=== PATIENT | male | born 2000 | race American Indian/Alaskan Native ===

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

== ENCOUNTER 2021-03-13 01:49 | Emergency (ER) | payer OTHER ==
[~2021-03-13] VITALS: Ht 185.4 cm; Wt 70.8 kg
[2021-03-13] MEDS ORDERED: HYDROCODON-ACE1 EA10 PO (03:17)
[2021-03-13] MEDS ORDERED: CRUTCH1 EACH MISC (03:19)
== END 2021-03-13 03:32 | disposition home or self-care (01) ==
LOC: ED 01:49
DX: S83.92XA Sprain of unspecified site of left knee, initial encounter (principal); W17.89XA Other fall from one level to another, initial encounter; F17.200 Nicotine dependence, unspecified, uncomplicated
CPT/HCPCS: 73560; 99283-25

== ENCOUNTER 2021-08-02 17:12 | Emergency (ER) | payer OTHER ==
[~2021-08-02] VITALS: Ht 185.4 cm; Wt 70.8 kg
[~2021-08-02 17:12] MED LIST changes: +CRUTCH1 EACH MISC; +HYDROCODON-ACE1 EA10 PO
[2021-08-02] MEDS ORDERED: CEPHALEXIN500 M1 PO (17:57)
[2021-08-02] MEDS ORDERED: CENTANY30 GM TOP (17:57)
== END 2021-08-02 18:08 | disposition home or self-care (01) ==
LOC: ED 17:12
DX: L01.00 Impetigo, unspecified (principal); F17.200 Nicotine dependence, unspecified, uncomplicated
CPT/HCPCS: 99282; A9270

== ENCOUNTER 2022-01-18 21:21 | Emergency (ER) | payer OTHER ==
[~2022-01-18] VITALS: Ht 185.4 cm; Wt 65.6 kg
[~2022-01-18 21:21] MED LIST changes: +CENTANY30 GM TOP; +CEPHALEXIN500 M1 PO
== END 2022-01-18 22:08 | disposition home or self-care (01) ==
LOC: ED 21:21
DX: B34.9 Viral infection, unspecified (principal)
CPT/HCPCS: 87502; 99283; U0003

== ENCOUNTER 2022-02-27 23:47 | Emergency (ER) | payer OTHER ==
[~2022-02-27] VITALS: Ht 185.4 cm; Wt 64.1 kg
== END 2022-02-28 00:23 | disposition home or self-care (01) ==
LOC: ED 23:47
DX: S60.221A Contusion of right hand, initial encounter (principal); F17.200 Nicotine dependence, unspecified, uncomplicated; X58.XXXA Exposure to other specified factors, initial encounter
CPT/HCPCS: 73130; 99283-25

== ENCOUNTER 2022-09-30 17:50 | Emergency (ER) | payer OTHER ==
[~2022-09-30] VITALS: Ht 185.4 cm; Wt 67.7 kg
[2022-09-30 19:27] VITALS: BP 130/78
== END 2022-09-30 19:27 | disposition home or self-care (01) ==
LOC: ED 17:50
DX: S60.221A Contusion of right hand, initial encounter (principal); W22.8XXA Striking against or struck by other objects, initial encounter; F17.200 Nicotine dependence, unspecified, uncomplicated
CPT/HCPCS: 73130; 99283-25

== ENCOUNTER 2024-04-24 17:36 | Emergency (ER) | payer OTHER ==
[~2024-04-24] VITALS: Ht 188 cm; Wt 68.1 kg
[~2024-04-24 17:36] MED LIST changes: +BACLOFEN5 MG PO; +ELIMITE60 GM TOP; +LIDODERM1 EACH TOP
[2024-04-24] MEDS ORDERED: MELOXICAM15 MG PO (19:20)
[2024-04-24] MEDS ORDERED: TRAMADOL HCL 50 MG HOME.PACK PO ONE (19:30)
[2024-04-24 19:45] VITALS: BP 114/70
== END 2024-04-24 19:50 | disposition home or self-care (01) ==
LOC: ED 17:36
DX: S60.221A Contusion of right hand, initial encounter (principal); W23.0XXA Caught, crushed, jammed, or pinched between moving objects, initial encounter; F17.200 Nicotine dependence, unspecified, uncomplicated
CPT/HCPCS: 73110; 73130; 99283; A9270

== ENCOUNTER 2024-05-28 20:05 | Emergency (ER) | payer OTHER ==
[~2024-05-28] VITALS: Ht 185.4 cm; Wt 67.6 kg
[~2024-05-28 20:05] MED LIST changes: +MELOXICAM15 MG PO
[2024-05-28] MEDS ORDERED: SODIUM CHLORIDE 0.9% 1,000 ML IV ONE (21:00)
[2024-05-28 21:03] LABS: BASOPHILS 0.4 % (0-2); EOSINOPHILS 0.4 % (0-6); HEMATOCRIT 44.8 % (35.0-50.0); HEMOGLOBIN 15.3 g/dL (12.0-18.0); LYMPHOCYTES 19.8 % (24-44); MCH 29.2 (27-36); MCHC 34.2 g/dl (30-36); MCV 85.5 fl (81-99); MONOCYTES 4.9 % (0-12); NEUTROPHILS 74.5 % (39-80); PLATELET COUNT 235 K/uL (140-440); RBC 5.25 M/ul (4.3-5.7); RDW 13.4 (10.5-15.0)
[2024-05-28 21:18] LABS: ALBUMIN 4.4 g/dL (3.4-5.0); ALBUMIN/GLOBULIN RATIO 1.22 (1.1-2.4); ANION GAP 12.5 (7-21); BILIRUBIN, TOTAL 0.6 ng/dL (0.2-1.0); BUN/CREATININE RATIO 9.33 (6.0-28.6); CALCIUM 9.2 mg/dL (8.5-10.1); CREATININE, SERUM 0.75 mg/dL (0.70-1.30); MAGNESIUM 2.2 mg/dL (1.8-2.4); POTASSIUM 3.5 mmol/L (3.5-5.1)
[2024-05-28] MEDS ORDERED: MECLIZINE HCL25 MG PO (21:39)
[2024-05-28] MEDS ORDERED: MECLIZINE HCL 25 MG TAB PO ONE (21:45)
[2024-05-28 21:48] VITALS: BP 113/70
--- NOTE | 2024-05-29 16:41 | EKG ---
[facility] [address] [address] [place], [place] [address] Signed Normal sinus rhythm Normal ECG No previous ECGs available Confirmed by La Maldonado MD ([id number]) on 05/29/2024 4:41:16 PM Electronically Signed By: LA MALDONADO MD 05/29/24 1641 PATIENT NAME: TOSHIA BROWN Electrocardiogram DATE OF : [birth year] PHYSICIAN: LA MALDONADO MD REPORT #: [id number] REPORT IS CONFIDENTIAL AND NOT TO BE RELEASED WITHOUT AUTHORIZATION
== END 2024-05-28 21:48 | disposition home or self-care (01) ==
LOC: ED 20:05
PROVIDERS: Family Medicine
DX: H81.10 Benign paroxysmal vertigo, unspecified ear (principal); F17.200 Nicotine dependence, unspecified, uncomplicated
CPT/HCPCS: 36415; 80053; 83735; 85025; 93005; 93010; 99284; A9270

== ENCOUNTER 2025-02-08 14:09 | Emergency (ER) | payer OTHER ==
[~2025-02-08] VITALS: Ht 185.4 cm; Wt 66.5 kg
[~2025-02-08 14:09] MED LIST changes: +MECLIZINE HCL25 MG PO
--- OUTSIDE RECORDS SUMMARY | 2025-02-08 14:15 | XMS ---
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 King VISIT COUNT (12 MO.) Bernadine Rodriguez TOTAL 5 NOTE: Visits indicate total known visits. ED/UCC VISIT TRACKING (12 MO.) 02/08/2025 14:09 [facility] [place] TYPE: Emergency COMPLAINT: - EAR PAIN 01/08/2025 19:53 [facility] [place] TYPE: Emergency COMPLAINT: - GROIN SWELLING,DIFFICULTY URINATING 01/03/2025 18:33 [facility] [place] TYPE: Emergency COMPLAINT: - GROIN PROBLEM DIAGNOSES: - Left lower quadrant pain - Nicotine dependence, unspecified, uncomplicated - Other symptoms and signs concerning food and fluid intake - Unilateral inguinal hernia, without obstruction or gangrene, not specified as recurrent 05/28/2024 20:05 [facility] [place] TYPE: Emergency COMPLAINT: - DIZZIENESS DIAGNOSES: - Benign paroxysmal vertigo, unspecified ear - Dizziness and giddiness - Nicotine dependence, unspecified, uncomplicated 04/24/2024 17:37 [facility] [place] TYPE: Emergency COMPLAINT: - HAND INJURY DIAGNOSES: - Caught, crushed, jammed, or pinched between moving objects, initial encounter - Contusion of right hand, initial encounter - Nicotine dependence, unspecified, uncomplicated - Pain in right hand INPATIENT VISIT TRACKING (12 MO.) No inpatient visits to display in this time frame [id number]
[2025-02-08] MEDS ORDERED: MECLIZINE HCL25 MG PO (14:59)
[2025-02-08] MEDS ORDERED: AMOX TR-K CLV1 EAC1 PO (14:59)
[2025-02-08] MEDS ORDERED: MECLIZINE HCL 25 MG TAB PO ONE (15:00)
[2025-02-08] MEDS ORDERED: AMOXICILLIN/CLAVULANATE K 875 MG TAB PO ONE (15:00)
[2025-02-08 15:10] VITALS: BP 117/74
== END 2025-02-08 15:10 | disposition home or self-care (01) ==
LOC: ED 14:09
DX: H66.92 Otitis media, unspecified, left ear (principal); F17.200 Nicotine dependence, unspecified, uncomplicated
CPT/HCPCS: 99282; A9270

== ENCOUNTER 2025-04-12 20:43 | Emergency (ER) | payer OTHER ==
[~2025-04-12] VITALS: Ht 185.4 cm; Wt 65.9 kg
--- OUTSIDE RECORDS SUMMARY | ~2025-04-12 | XMS | Continuity of Care Document ---
Demographics + + + | Address | [address] | | | [place] [address] | + + + | Preferred Language | Unknown | + + + | Marital Status | Never | + + + | Taoist Affiliation | Unknown | + + + | Race | or | + + + | Ethnic Group | Not or | + + + Author + + + | Author | [facility] | + + + | Organization | [facility] | + + + | Address | [address] | | | [place] [address] | + + + | Phone | | + + + Care Team Providers + + + + | Care Carpenters Helper Name | Role | Phone | + + + + Unavailable | Unavailable | + + + + Unavailable | Unavailable | + + + + Allergies No information. Encounters No information. Functional Status No information. Immunizations No information. Medications + + + + | date | description | facility | + + + + | (no date) | METHYLPHENIDATE HCL | [facility] | | | | [facility] | + + + + | (no date) | RISPERIDONE | [facility] | | | | [facility] | + + + + | (no date) | RISPERIDONE | [facility] | | | | [facility] | + + + + | (no date) | ARIPIPRAZOLE | [facility] | | | | [facility] | + + + + | (no date) | AMPHET ASP/AMPHET/D-AMPHET | [facility] | | | | [facility] | + + + + | 2025-02-08 00:00 | AMOXICILLIN/POTASSIUM CLAV | [facility] | | | | [facility] | + + + + | (no date) | IBUPROFEN | [facility] | | | | [facility] | + + + + | (no date) | GUANFACINE HCL | [facility] | | | | [facility] | + + + + | 2025-02-08 00:00 | MECLIZINE HCL | [facility] | | | | [facility] | + + + + Problems + + + + | date | description | facility | + + + + | 2025-02-08 00:00 | Otitis media | [facility] | | | | [facility] | + + + + Procedures No information. Results/Labs No information. Social History +--------+ + + | date | description | facility | +--------+ + + Vital Signs + + + +---------+ | date | measurement | value | units | + + + +---------+ | 2025-02-08 00:00 | BMI | 19.3 | kg/m2 | + + + +---------+ | 2025-02-08 00:00 | BP_diastolic | 74 | mmHg | + + + +---------+ | 2025-02-08 00:00 | BP_systolic | 117 | mmHg | + + + +---------+ | 2025-02-08 00:00 | heart_rate | 89 | /min | + + + +---------+ | 2025-02-08 00:00 | height_metric | 185.42 | cm | + + + +---------+ | 2025-02-08 00:00 | height_standard | 73 | in | + + + +---------+ | 2025-02-08 00:00 | o2_saturation | 99 | % | + + + +---------+ | 2025-02-08 00:00 | respiration_rate | 17 | /min | + + + +---------+ | 2025-02-08 00:00 | | 97.8 | F | | | temperature_standar | | | | | d | | | + + + +---------+ | 2025-02-08 00:00 | weight_metric | 66.499 | kg | + + + +---------+ | 2025-02-08 00:00 | weight_standard | 146.606 | lb | + + + +---------+"
[~2025-04-12 20:43] MED LIST changes: +AMOX TR-K CLV1 EAC1 PO
--- OUTSIDE RECORDS SUMMARY | 2025-04-12 20:50 | XMS ---
PreManage Notification: TOSHIA BROWN Security Health Safety And Environment Manager Events No recent Security Events currently on file CRITERIA MET - Group Notification CARE PROVIDERS -, [facility] Dentist: Waiter/Waitress Head Current [place] PHONE: [phone] CAROL ANN ERVIN Physician Assistant Marii Phipps PHONE: Unknown Kimo has no Care Guidelines for this patient. EJames VISIT COUNT (12 MO.) Juarez Rodriguez TOTAL 6 NOTE: Visits indicate total known visits. ED/UCC VISIT TRACKING (12 MO.) 04/12/2025 20:44 [facility] [place] TYPE: Emergency COMPLAINT: - THROAT PAIN 02/08/2025 14:09 [facility] [place] TYPE: Emergency COMPLAINT: - EAR PAIN DIAGNOSES: - Nicotine dependence, unspecified, uncomplicated - Otalgia, left ear - Otitis media, unspecified, left ear 01/08/2025 19:53 [facility] [place] TYPE: Emergency COMPLAINT: - GROIN SWELLING,DIFFICULTY URINATING 01/03/2025 18:33 [facility] TYPE: Emergency COMPLAINT: - GROIN PROBLEM DIAGNOSES: - Left lower quadrant pain - Nicotine dependence, unspecified, uncomplicated - Other symptoms and signs concerning food and fluid intake - Unilateral inguinal hernia, without obstruction or gangrene, not specified as recurrent 05/28/2024 20:05 [facility] [place] TYPE: Emergency COMPLAINT: - DIZZIENESS DIAGNOSES: - Benign paroxysmal vertigo, unspecified ear - Dizziness and giddiness - Nicotine dependence, unspecified, uncomplicated 04/24/2024 17:37 [facility] [place] TYPE: Emergency COMPLAINT: - HAND INJURY DIAGNOSES: - Caught, crushed, jammed, or pinched between moving objects, initial encounter - Contusion of right hand, initial encounter - Nicotine dependence, unspecified, uncomplicated - Pain in right hand INPATIENT VISIT TRACKING (12 MO.) No inpatient visits to display in this time frame [id number]
[2025-04-12] MEDS ORDERED: MECLIZINE HCL25 M1 PO (21:41)
[2025-04-12] MEDS ORDERED: MECLIZINE HCL 25 MG TAB PO ONE (22:15)
[2025-04-12] MEDS ORDERED: AMOXICILLIN500 MG PO (22:15)
[2025-04-12] MEDS ORDERED: AMOXICILLIN 500 MG CAP PO ONE (22:15)
[2025-04-12 22:28] VITALS: BP 106/68
== END 2025-04-12 22:30 | disposition home or self-care (01) ==
LOC: ED 20:43
DX: J02.0 Streptococcal pharyngitis (principal); H81.10 Benign paroxysmal vertigo, unspecified ear; F17.200 Nicotine dependence, unspecified, uncomplicated; Z79.899 Other long term (current) drug therapy
CPT/HCPCS: 87651; 99283; A9270

== ENCOUNTER 2025-05-03 23:18 | Emergency (ER) | payer OTHER ==
[~2025-05-03] VITALS: Ht 185.4 cm; Wt 65.9 kg
[~2025-05-03 23:18] MED LIST changes: +AMOXICILLIN500 MG PO; +MECLIZINE HCL25 M1 PO
--- OUTSIDE RECORDS SUMMARY | 2025-05-03 23:24 | XMS ---
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 EJames VISIT COUNT (12 MO.) 6 [facility] TOTAL 6 NOTE: Visits indicate total known visits. ED/UCC VISIT TRACKING (12 MO.) 05/03/2025 23:18 [facility] [place] TYPE: Emergency COMPLAINT: - STREP THROAT 04/12/2025 20:44 [facility] [place] TYPE: Emergency COMPLAINT: - THROAT PAIN DIAGNOSES: - Acute pharyngitis, unspecified - Benign paroxysmal vertigo, unspecified ear - Nicotine dependence, unspecified, uncomplicated - Other termite treater (current) drug therapy - Streptococcal pharyngitis 02/08/2025 14:09 [facility] [place] TYPE: Emergency COMPLAINT: - EAR PAIN DIAGNOSES: - Nicotine dependence, unspecified, uncomplicated - Otalgia, left ear - Otitis media, unspecified, left ear 01/08/2025 19:53 [facility] [place] TYPE: Emergency COMPLAINT: - GROIN SWELLING,DIFFICULTY URINATING 01/03/2025 18:33 [facility] [place] TYPE: Emergency COMPLAINT: - GROIN PROBLEM DIAGNOSES: - Left lower quadrant pain - Nicotine dependence, unspecified, uncomplicated - Other symptoms and signs concerning food and fluid intake - Unilateral inguinal hernia, without obstruction or gangrene, not specified as recurrent 05/28/2024 20:05 [facility] [place] TYPE: Emergency COMPLAINT: - DIZZIENESS DIAGNOSES: - Benign paroxysmal vertigo, unspecified ear - Dizziness and giddiness - Nicotine dependence, unspecified, uncomplicated INPATIENT VISIT TRACKING (12 MO.) No inpatient visits to display in this time frame [id number]
[2025-05-04 00:02] LABS: CORONAVIRUS COVID-19 AG NEGATIVE (NEGATIVE)
[2025-05-04 00:26] VITALS: BP 139/90
[2025-05-04] MEDS ORDERED: CYCLOBENZAPRINE10 MG PO (20:38)
== END 2025-05-04 00:26 | disposition home or self-care (01) ==
LOC: ED 23:18
PROVIDERS: Family Medicine
DX: J02.9 Acute pharyngitis, unspecified (principal); F43.10 Post-traumatic stress disorder, unspecified; F17.200 Nicotine dependence, unspecified, uncomplicated; Z79.899 Other long term (current) drug therapy
CPT/HCPCS: 36415; 87651; 99283

== ENCOUNTER 2025-05-04 19:41 | Emergency (ER) | payer OTHER ==
[~2025-05-04] VITALS: Ht 185.4 cm; Wt 65.9 kg
--- NOTE | ~2025-05-04 | EKG ---
[facility] [address] [facility] [place], [place] [address] Draft EK completed, results pending confirmation PATIENT NAME: KEVINTOSHIA GUILLEN Electrocardiogram DATE OF : [birth year] PHYSICIAN: PRELIMINARY REPORT #: [id number] REPORT IS CONFIDENTIAL AND NOT TO BE RELEASED WITHOUT AUTHORIZATION
--- OUTSIDE RECORDS SUMMARY | ~2025-05-04 | XMS | Continuity of Care Document ---
Demographics + + + | Address | [address] | | | [place] [address] | + + + | Preferred Language | Unknown | + + + | Marital Status | Domestic partner | + + + | Uatsdin Affiliation | Unknown | + + + | Race | or | + + + | Ethnic Group | Not or | + + + Author + + + | Author | [facility] | + + + | Organization | [facility] | + + + | Address | [address] | | | [place] [address] | + + + | Phone | | + + + Care Team Providers + + + + | Care Line Maintenance Technician Name | Role | Phone | + + + + Unavailable | Unavailable | + + + + Unavailable | Unavailable | + + + + Allergies No information. Encounters No information. Functional Status No information. Immunizations No information. Medications + + + + | date | description | facility | + + + + | (no date) | METHYLPHENIDATE HCL | [facility] | | | | [facility] | + + + + | 2025-04-12 00:00 | AMOXICILLIN | [facility] | | | | [facility] | + + + + | (no date) | RISPERIDONE | [facility] | | | | [facility] | + + + + | (no date) | RISPERIDONE | [facility] | | | | [facility] | + + + + | (no date) | ARIPIPRAZOLE | [facility] | | | | [facility] | + + + + | (no date) | AMPHET ASP/AMPHET/D-AMPHET | [facility] | | | | [facility] | + + + + | 2025-02-08 00:00 | AMOXICILLIN/POTASSIUM CLAV | [facility] | | | | [facility] | + + + + | (no date) | IBUPROFEN | [facility] | | | | [facility] | + + + + | (no date) | GUANFACINE HCL | [facility] | | | | [facility] | + + + + | 2025-04-12 00:00 | MECLIZINE HCL | [facility] | | | | [facility] | + + + + | 2025-02-08 00:00 | MECLIZINE HCL | [facility] | | | | [facility] | + + + + Problems + + + + | date | description | facility | + + + + | 2025-02-08 00:00 | Otitis media | [facility] | | | | [facility] | + + + + | 2025-04-12 00:00 | Pharyngitis due to | [facility] | | | Streptococcus species | [facility] | + + + + | 2025-04-12 00:00 | Pharyngitis | [facility] | | | | [facility] | + + + + Procedures No [...] 146.606 | lb | + + + +---------+ | 2025-04-12 00:00 | BMI | 19.2 | kg/m2 | + + + +---------+ | 2025-04-12 00:00 | BP_diastolic | 68 | mmHg | + + + +---------+ | 2025-04-12 00:00 | BP_systolic | 106 | mmHg | + + + +---------+ | 2025-04-12 00:00 | heart_rate | 84 | /min | + + + +---------+ | 2025-04-12 00:00 | height_metric | 185.42 | cm | + + + +---------+ | 2025-04-12 00:00 | height_standard | 73 | in | + + + +---------+ | 2025-04-12 00:00 | o2_saturation | 100 | % | + + + +---------+ | 2025-04-12 00:00 | respiration_rate | 14 | /min | + + + +---------+ | 2025-04-12 00:00 | | 98.2 | F | | | temperature_standar | | | | | d | | | + + + +---------+ | 2025-04-12 00:00 | weight_metric | 65.901 | kg | + + + +---------+ | 2025-04-12 00:00 | weight_standard | 145.287 | lb | + + + +---------+"
--- OUTSIDE RECORDS SUMMARY | 2025-05-04 19:43 | XMS ---
PreManage Notification: TOSHIA BROWN Security Outside Sales Executive Events No recent Security Events currently on file CRITERIA MET - 6 ED Visits in 6 Months - Group Notification - [facility] - 2 Visits in 30 Days CARE PROVIDERS -, [facility]+ Dentist: Systems Analyst Marii Sae[place] PHONE: [phone] CAROL ANN ERVIN Physician Assistant Marii Phipps PHONE: Unknown Kimo has no Care Guidelines for this patient. E.Jonatan VISIT COUNT (12 MO.) [address] [place] [address] TOTAL 7 NOTE: Visits indicate total known visits. ED/UCC VISIT TRACKING (12 MO.) 05/04/2025 19:42 [facility] [place] TYPE: Emergency COMPLAINT: - CHEST PAIN 05/03/2025 23:18 [facility] [place] TYPE: Emergency COMPLAINT: - STREP THROAT 04/12/2025 20:44 [facility] [place] TYPE: Emergency COMPLAINT: - THROAT PAIN DIAGNOSES: - Acute pharyngitis, unspecified - Benign paroxysmal vertigo, unspecified ear - Nicotine dependence, unspecified, uncomplicated - Other care home (current) drug therapy - Streptococcal pharyngitis 02/08/2025 14:09 [facility] [place] [place] COMPLAINT: - EAR PAIN DIAGNOSES: - Nicotine dependence, unspecified, uncomplicated - Otalgia, left ear - Otitis media, unspecified, left ear 01/08/2025 19:53 [facility] [place] COMPLAINT: - GROIN SWELLING,DIFFICULTY URINATING 01/03/2025 18:33 [facility] [place] COMPLAINT: - GROIN [...] visits to display in this time frame [id number]
[2025-05-04 20:05] LABS: BASOPHILS 0.4 % (0.2-1.2); EOSINOPHILS 0.2 % (0.8-7.0); LYMPHOCYTES 36.1 % (21.8-53.1); MCH 28.8 PG (25.7-32.2); MCHC 34.5 g/dL (32.3-36.5); MCV 83.6 fL (79.0-92.2); MONOCYTES 4.7 % (5.3-12.2); NEUTROPHILS 58.6 % (34.0-67.9); RBC 5.24 M/uL (4.63-6.08)
[2025-05-04 20:29] LABS: ALT (SGPT) 13.0 U/L (14-59); AST (SGOT) 16.0 U/L (15-37); GLOMERULAR FILTRATION RATE,EST 132.0 mL/min (>60); PROTEIN, TOTAL 8.4 g/dL (6.4-8.2); UREA NITROGEN 11.0 mg/dL (7-18)
[2025-05-04] MEDS ORDERED: CYCLOBENZAPRINE10 MG PO (20:38)
[2025-05-04] MEDS ORDERED: CYCLOBENZAPRINE HCL 10 MG HOME.PACK PO ONE (20:45)
[2025-05-04 20:55] VITALS: BP 114/90
== END 2025-05-04 20:53 | disposition home or self-care (01) ==
LOC: ED 19:41
PROVIDERS: Family Medicine
DX: R07.89 Other chest pain (principal); F17.200 Nicotine dependence, unspecified, uncomplicated
CPT/HCPCS: 36415; 71045; 80053; 83735; 84484; 85025; 85379; 93005; 93010; 99285-25